=== PATIENT | male | born 1955 | race Caucasian/White ===

== ENCOUNTER 2025-05-02 14:06 | Inpatient (IN) | payer MEDICARE, SELFPAY ==
[2025-05-02] VITALS (11 sets, daily range): BP systolic 93–149; BP diastolic 62–87; PULSE 62–77; RESP 16–18; TEMP 36.2–36.8; O2SAT 93–98; BMI 28.7; BMI 29.6
--- NOTE | 2025-05-02 14:49 | CTR_ITS ---
PROCEDURE INFORMATION: Exam: CT Pelvis With Contrast Exam date and time: 05/02/2025 4:01 PM Age: 69 years old Clinical indication: Other: Perirectal pain, ? abcess at 6 oclock position TECHNIQUE: Imaging protocol: Computed tomography of the pelvis with contrast. Radiation optimization: All CT scans at this facility use at least one of these dose optimization techniques: automated exposure control; mA and/or kV adjustment per patient size (includes targeted exams where dose is matched to clinical indication); or iterative reconstruction. Contrast material: OMNI 350; Contrast volume: 100 ml; Contrast route: INTRAVENOUS (IV); COMPARISON: No relevant prior studies available. RADIATION DOSE METRICS: Total DLP (mGy-cm): 401.31 FINDINGS: Intestine: Visualized small and large intestine are unremarkable. Appendix: No evidence of appendicitis. Intraperitoneal space: See Soft tissues finding. Lymph nodes: Unremarkable. No enlarged lymph nodes. Reproductive: The prostate gland is abnormally enlarged. Urinary bladder: Normal. No mass. Bones/joints: Unremarkable. No acute fracture. No dislocation. Soft tissues: There is a perianal abscess wrapping around the posterior aspect of the anus. The abscess crosses the midline and measures 4 cm in length, 3.7 cm in AP diameter and 3.3 cm in width. There is surrounding inflammation. The abscess does not enter the pelvic cavity. CT/CT pelvis w con* [id number] IMPRESSION: 1. Perianal abscess 2. Prostate enlargement
[2025-05-02 15:07] LABS: Basophils % 0.2 %; Eosinophils # 0.1 10^3/uL (0.0-0.8); Eosinophils % 0.9 %; Hematocrit 44.6 % (37-53); Lymphocytes % 14.4 %; Mean Corpuscular HGB Conc 32.5 g/dL (30-55); Mean Corpuscular Hemoglobin 28.7 pg (27-33); Mean Corpuscular Volume 88.3 fl (82-101); Mean Platelet Volume 10.5 fL (7.4-10.4); Monocytes # 1.6 10^3/uL (0.2-0.9); Monocytes % 11.7 %; Neutrophils # 10.08 10^3/uL (1.8-7.7); Neutrophils % 72.4 %; Nucleated Red Blood Cells % 0 %; Platelet Count 191 10^3/cmm (157-399); Red Blood Count 5.05 10^6/uL (3.85-5.65); Red Cell Distribution Width 13.3 % (12.1-15.1); White Blood Count 13.93 10^3/uL (3.29-11.43)
[2025-05-02 15:25] LABS: Alanine Aminotransferase 35 U/L (0-41); Albumin Level 3.7 g/dL (3.5-5.2); Alkaline Phosphatase 48 U/L (40-130); Anion Gap 15.1 (5-19); Aspartate Amino Transferase 31 U/L (0-40); Blood Urea Nitrogen 13 mg/dL (8-23); Calcium 9.2 mg/dL (8.5-10.5); Carbon Dioxide 24 mmol/L (22-29); Chloride 102 mmol/L (98-107); Globulin 3.5 g/dL (1.3-4.6); Glomerular Filtration Rate 96.1 mL/min (90-130); Glucose 104 mg/dL (65-115); Osmolality Calculated 284 mOsm/kg (285-295); Potassium 4.1 mmol/L (3.5-5.1); Sodium 137 mmol/L (136-145); Total Bilirubin 0.8 mg/dL (0.15-1.2); Total Protein 7.2 g/dL (6.6-8.7)
[2025-05-02] MEDS: iohexol 350 mg/mL 500 mL Btl (per mL) IV (16:02)
[2025-05-02] MEDS: piperacillin-tazobactam 3.375 GM in sodium chloride 0.9% (plus) 50 ML IV (17:03)
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
[2025-05-02] MEDS: ondansetron 2 mg/ML SDV 2 mL 4 MG IVP (19:38)
[2025-05-02] MEDS: sodium chloride 0.9% 1,000 ML 100 ML IV (19:38)
--- NOTE | 2025-05-02 20:20 | PM.HP ---
Providers/Chief Complaint Admitting Physician: Danielle Chandra DO Chief Complaint: knot on anal area History of Present Illness Sandoval Lopez is a 69 year old male who presented to the ED with anal/rectal pain and swelling. He has had the pain for about a week, but the pain significantly worsened yesterday. The patient denied measured fevers, but stated that he had subjective fevers and felt hot at night. The patient denied nausea, vomiting, abdominal pain, hematochezia, or melena. He is not diabetic and is generally healthy. He has not had a perianal or perirectal abscess in the past. Review of Systems General: Reports: 10 or more systems reviewed and unremarkable except in HPI and below Medications/Allergies Allergies Allergy/AdvReac Type Severity Reaction Status Date / Time No Known Allergies Allergy Verified 05/02/25 14:26 Vitals/I&O/Wt Last Vital Signs Temp 98.3 F 05/02/25 14:21 Pulse 68 05/02/25 19:42 Resp 16 05/02/25 19:42 BP 135/85 05/02/25 18:05 Pulse Ox 95 05/02/25 19:42 O2 Del Method Room Air 05/02/25 15:27 05/02/25 05/02/25 05/02/25 06:59 14:59 22:59 Intake Total 0 / 0 Balance 0 / 0 Weight last 48 hrs Weight 200 lb Physical Exam Const: COMMON NORMALS: no acute distress, average body habitus and patient oriented x3 HENMT: COMMON NORMALS: normocephalic and atraumatic Chest: COMMONS NORMALS: normal inspection of the chest and normal palpation of entire chest wall Resp: COMMON NORMALS: normal respiratory effort and No use of accessory muscles GI: COMMON NORMALS: Soft to palpation and non-tender OTHER: Upon digital rectal exam there was a palpable firmness approx. 3 cm superior to the anal verge at the 6 o'clock position. On perianal exam, there was an area of palpable firmness at the 6 o'clock position approximately 2 cm from the anal verge, there was not apparent fluctuance or overlying erythema at the location. Data 05/02/25 15:00 05/02/25 15:00 Micro: Microbiology 05/02/25 15:02 Blood Culture - Preliminary Blood SPECIMEN COLLECTED 05/02/25 15:00 Blood Culture - Preliminary Blood SPECIMEN COLLECTED Other CT: Radiologist's impression: CT Pelvis FINDINGS: Intestine: Visualized small and large intestine are unremarkable. Appendix: No evidence of appendicitis. Intraperitoneal space: See Soft tissues finding. Lymph nodes: Unremarkable. No enlarged lymph nodes. Reproductive: The prostate gland is abnormally enlarged. Urinary bladder: Normal. No mass. Bones/joints: Unremarkable. No acute fracture. No dislocation. Soft tissues: There is a perianal abscess wrapping around the posterior aspect of the anus. The abscess crosses the midline and measures 4 cm in length, 3.7 cm in AP diameter and 3.3 cm in width. There is surrounding inflammation. The abscess does not enter the pelvic cavity. IMPRESSION: 1. Perianal abscess 2. Prostate enlargement A&P Assessment and plan (1) Perirectal abscess: This patient has 4.0 x 3.7 x 3.0 cm perirectal verus perianal abscess that is more apparent on digital rectal exam and on CT (see physical exam findings). After reviewing the CT, and I had concern for a high abscess, either ischiorectal, inersphincteric, and less likely although possible a supralevato abscess. The radiologist confirmed that the abscess was quite high and either involved the sphincter muscles or was at the very least adjacent to the sphincter muscles. I requested that ED physician send images to colorectal surgeon for review. Colorectal was confident that colorectal surgery intervention was unnecessary. Plan for rectal exam under anesthesia with excisional debridement and drainage of perirectal/perianal absces, with possible fistulotomy, possible draining seton placement, and other procedures as indicated. The procedure and what it would entail were discussed with the patient and his family member in detail. Risks included, but were not limited to, infection, bleeding, abscess recurrence, damage to the internal or external anal sphincters, fecal incontinence, need for further colorectal surgery, fistula formation, drainage into the rectum/perforation, damage to surrounding tissues, poor wound healing, delayed healing, need for further abscess drainage, need for prolonged wound care, and heart or lung complications. All questions were answered, and the patient wished to proceed with surgery. (2) Leukocytosis (leucocytosis): PDMP PDMP Reviewed: Not Reviewed Attestations Medical Necessity Statement*: Observation - for post op care. Transition to inpatient if clinically indicated. Coding Level of Care Code Acute Code for [facility] Fwd Diagnoses Perirectal abscess K61.1 Leukocytosis (leucocytosis) D72.822
--- NOTE | 2025-05-02 20:32 | ANES.PREANE2 ---
Pre-Anesthetic Assessment Height/Weight: Height 1.78 m Weight 90.718 kg Temp Pulse Resp BP Pulse Ox O2 Del Method 98.3 F 68 16 135/85 95 Room Air 05/02/25 14:21 05/02/25 19:42 05/02/25 19:42 05/02/25 18:05 05/02/25 19:42 05/02/25 15:27 Operation Date: 05/02/25 21:10 Proposed Procedures p Perirectal Abscess(Not Applicable) - Danielle Chandra MD Familial anesthetic complications: None Was Beta Jenni taken within 24 hours: N/A Was Clonidine taken within 24 hours: N/A Last intake: Intake Last Liquid Date 05/02/25 Last Liquid Time 11:30 Last Solid Date 05/02/25 Last Solid Time 09:00 Social No alcohol and No tobacco Exam alert, oriented x 3, clear to auscultation bilaterally and regular rate & rhythm Airway Mallampati: Class II Dentition: chipped Anesthetic Plan ASA status: 1E Anesthesia: General Risk of > 500 ml blood loss (7ml/kg in children): No Medications/Allergies Allergies Allergy/AdvReac Type Severity Reaction Status Date / Time No Known Allergies Allergy Verified 05/02/25 14:26 Current Medications Generic Name Dose Route Start Last Admin Trade Name Freq PRN Reason Stop Dose Admin Sodium Chloride 1,000 mls @ 100 mls/hr 05/02/25 19:00 05/02/25 19:38 Sodium Chloride 0.9% IV 100 mls/hr .Q10H TIERA Administration Ondansetron HCl 4 mg 05/02/25 18:59 05/02/25 19:38 Ondansetron 2 Mg/Ml Sdv 2 Ml IVP 4 mg Q6H PRN Administration NAUSEA AND VOMITING Data Anesthesia 05/02/25 15:00 05/02/25 15:00 Short CBC 05/02/25 Range/Units 15:00 WBC 13.93 H (3.29-11.43) 10^3/uL Hgb 14.50 (11.27-16.99) g/dL Hct 44.6 (37-53) % MCV 88.3 (82-101) fl Plt Count 191 (157-399) 10^3/cmm Neut % (Auto) 72.4 % Neut # (Auto) 10.08 H (1.8-7.7) 10^3/uL BMP 05/02/25 15:00 Sodium 137 Potassium 4.1 Chloride 102 Carbon Dioxide 24 BUN 13 Creatinine 0.8 Glucose 104 Calcium 9.2 Liver Function 05/02/25 Range/Units 15:00 Total Bilirubin 0.8 (0.15-1.2) mg/dL AST 31 (0-40) U/L ALT 35 (0-41) U/L Alkaline Phosphatase 48 (40-130) U/L Albumin 3.7 (3.5-5.2) g/dL Microbiology 05/02/25 15:02 Blood Culture - Preliminary Blood SPECIMEN COLLECTED 05/02/25 15:00 Blood Culture - Preliminary Blood SPECIMEN COLLECTED
[2025-05-02] MEDS: lidocaine-epi 1% 20 mL INJ 10 ML INJECTION (22:10)
[2025-05-02] MEDS: BUPivacaine 0.25% INJ 10 mL INJECTION (22:10)
--- NOTE | 2025-05-02 23:12 | P.OP_ITS ---
Operative Report Date of procedure: May 02, 2025 Pre-op diagnosis: Perianal/perirectal abscess Post-op diagnosis: Deep postanal abscess Procedure done: 1. Rectal exam under anesthesia 2. Incision and drainage of postanal space abscess 3. Excisional debridement post anal abscess, including skin, subcutaneous tissue (area of debridement equals 7.0 cm?) Specimens removed/disposition: 1. Deep post anal sapce abscess fluid sent for Gram stain, aerobic, and anaerobic cultures and sensitivity 2. Post anal abscess excisional debridement tissue for histopathology Surgeon: Danielle Chandra MD Estimated blood loss: 2 mL Complications: None apparent Findings: There was a large deep postanal space abscess, with the most caudal aspect of the abscess was located 3 cm from the level of the perianal skin (determined by aspiration with the 18 gauge needle and syringe). After drainage of the abscess and excisional debridement, the wound opening measured 2 cm in length by 2 cm in width. The wound opening was located at the 5 o'clock position and was 3.5 cm from the anal verge. The depth of the wound was 3.5 cm. There was a 3.0 cm in length anterolateral tunneling and a 3.5 cm in length posteromedial tunneling. Procedure: Prior to the procedure, the procedure and what would entail were discussed with the patient in detail. Risks included but were not limited to, infection, bleeding, abscess recurrence, damage to the internal or external anal sphincters, fecal incontinence, need for further colorectal surgery, fistula formation, drainage into the rectum/perforation, damage to surrounding tissues, poor wound healing, delayed healing, need for further abscess drainage, need for prolonged wound care, and heart or lung complications. All questions were answered, and the patient wished to proceed with surgery. The patient was brought to the operative suite and transferred to the operative table. General anesthesia and endotracheal intubation were accomplished by the anesthesiologist. The patient was transition to a dorsal lithotomy position. The patient's perianum, bilateral thighs, groin, and bilateral buttocks were prepped and draped in the usual sterile fashion. Timeout was performed verifying the correct surgeon, surgery to be performed, preoperative antibiot ics, and patient medication allergies. After a proper timeout was performed, local anesthetic was infiltrated within the skin and subcutaneous tissues at the operative site. Digital rectal exam was performed. Utilizing an 18-gauge needle and syringe, the deep post anal space abscess was located (there was not overlying fluctuance or erythema to guide choice of incision site) and some of the abscess fluid was aspirated. A portion of the abscess fluid was sent for Gram stain, aerobic and anaerobic cultures and sensitivities. A cruciform incision was made at this site and the remaining abscess fluid was removed. The abscess cavity was carefully explored to ensure that no additional abscess fluid pockets were present. The corners of the cruciform incision were trimmed with electrocautery and the abscess tissue was passed off the field and sent for histopathology. Excellent hemostasis was achieved with Bovie electrocautery. The wound was irrigated with copious sterile saline. The wound was packed with 1/2 inch iodoform gauze. A sterile dressing of gauze and ABD was placed over top. The patient tolerated the procedure well and was transferred to the post anesthesia care unit in stable and satisfactory condition.
[2025-05-03] MEDS: piperacillin-tazobactam 3.375 GM in sodium chloride 0.9% (plus) 50 ML IV ×4 (00:47→22:12)
[2025-05-03 04:00] VITALS: BP 113/71; PULSE 56; RESP 18; TEMP 36.6; O2SAT 96
[2025-05-03] MEDS: enoxaparin 40 mg/0.4 mL Syringe SUBCUT (05:13)
[2025-05-03 05:49] LABS: Basophils % 0.2 %; Hematocrit 44.6 % (37-53); Lymphocytes # 0.8 10^3/uL (0.8-4.8); Lymphocytes % 6.5 %; Mean Corpuscular HGB Conc 32.3 g/dL (30-55); Mean Corpuscular Hemoglobin 28.8 pg (27-33); Mean Corpuscular Volume 89.2 fl (82-101); Mean Platelet Volume 10.7 fL (7.4-10.4); Monocytes # 0.4 10^3/uL (0.2-0.9); Monocytes % 3.1 %; Neutrophils % 89.7 %; Nucleated Red Blood Cells % 0 %; Platelet Count 175 10^3/cmm (157-399); Red Cell Distribution Width 13.2 % (12.1-15.1); White Blood Count 11.92 10^3/uL (3.29-11.43)
[2025-05-03 08:30] VITALS: BP 116/69; PULSE 46; RESP 16; TEMP 36.5; O2SAT 98
[2025-05-03] MEDS: docusate sodium 100 mg Capsule PO ×2 (09:00→17:39)
--- NOTE | 2025-05-03 09:07 | P.PN_ITS ---
Subjective 2 Subjective: The patient was seen and evaluated at bedside this morning. His rectal/anal pain has completely resolved. He is tolerating a regular diet, without nausea or vomiting. He has voided 5 times since surgery last night. Vitals/I&O/Wt Last Vital Signs Temp 97.7 F 05/03/25 08:30 Pulse 46 L 05/03/25 08:30 Resp 16 05/03/25 08:30 BP 116/69 05/03/25 08:30 Pulse Ox 98 05/03/25 08:30 O2 Del Method Room Air 05/03/25 08:30 O2 Flow Rate 10 05/02/25 22:45 05/02/25 05/03/25 05/03/25 22:59 06:59 14:59 Intake Total 0 / 0 2099 / 2099 Output Total 800 / 810 Balance - 1300 / 1290 Weight last 48 hrs Weight 216 lb 5 oz Weight 206 lb 8 oz Weight 200 lb Physical Exam 2 Const: COMMON NORMALS: no acute distress, average body habitus and patient oriented x3 HENMT: COMMON NORMALS: normocephalic and atraumatic HEAD & SCALP: n ormocephalic and atraumatic Chest: COMMONS NORMALS: normal inspection of the chest Resp: COMMON NORMALS: normal respiratory effort and No use of accessory muscles GI: COMMON NORMALS: Soft to palpation and non-tender PALPATION: Yes Soft to palpation OTHER: Digital rectal and perianal exam performed during wound care today -see below in plan. Neuro: COMMON NORMALS: patient oriented x3 and moves all extremities Psych: COMMON NORMALS: Normal thought process present, cooperative, normal affect and speech normal SPEECH: Yes normal speech THOUGHT PROCESS: Normal thought process present Data 05/03/25 05:25 05/02/25 15:00 Micro: Microbiology 05/02/25 21:47 Gram Stain - Final Anus 05/02/25 15:02 Blood Culture - Preliminary Blood SPECIMEN COLLECTED 05/02/25 15:00 Blood Culture - Preliminary Blood SPECIMEN COLLECTED A&P Assessment and plan (1) Anal abscess: Deep postanal abscess: This patient had a post anal abscess: The wound opening measures 2 cm in length by 2 cm in width. The wound opening is located at the 5 o'clock position and is 3.5 cm from the anal verge. The depth of the wound is ~ 3.5 cm. There is a 3.0 cm in length anterolateral tunneling and a 3.5 cm in length posteromedial tunneling. -- Digital rectal exam demonstrates resolution of the firmness located posteriorly in the anal/rectal canal. -- The wound base edges were pink and well-perfused, without sign of necrotic or devitalized tissue, and without purulent or malodorous drainage. The wound was nontender and the adjacent skin was nonerythematous. -- Wound care performed at bedside this morning: The packing was removed. The wound was irrigated with copious sterile saline. The wound was packed with plain 1 half-inch strip gauze. An outer dressing of sterile gauze was placed. Patient's was present for and assisted with the wound care at bedside today. If the patient has a bowel movement, wound care will need to be repeated, otherwise just daily wound care/packing will be fine. Preliminary Gram stain demonstrates gram-positive cocci and gram-negative rods: Continue IV Zosyn, add vancomycin. Hopefully sensitivities will revolve result tomorrow and I can discharge the patient on oral antibiotics. (2) Perirectal abscess: (3) Leukocytosis (leucocytosis): PDMP PDMP Reviewed: Not Reviewed Attestations 2 Medical Necessity Statement*: IV antibiotics, serial deep postanal abscess exams, monitoring of vital signs, monitoring of labs, and following abscess fluid cultures and sensitivities. Coding Level of Care Code Acute Code for [facility] Diagnoses Anal abscess K61.0 Perirectal abscess K61.1 Leukocytosis (leucocytosis) D72.829
--- NOTE | 2025-05-03 09:45 | PHA.VACGOAL ---
Vancomycin Goal - Goal Vancomycin Goal:: 15-20 mg/L Vancomycin Indication:: SSTI (PERIANAL ABSCESS) - Therapy Day of therpy:: Day []of [] . Actual body weight (kg): 216 lb 5 oz - Data Labs: WBC 11.92 10^3/uL (3.29-11.43) H 05/03/25 05:25 RBC 5.00 10^6/uL (3.85-5.65) 05/03/25 05:25 Hgb 14.40 g/dL (11.27-16.99) 05/03/25 05:25 Hct 44.6 % (37-53) 05/03/25 05:25 MCV 89.2 fl (82-101) 05/03/25 05: MCH 28.8 pg (27-33) 05/03/25 05: MCHC 32.3 g/dL (30-55) 05/03/25 05:25 RDW 13.2 % (12.1-15.1) 05/03/25 05:25 Sodium 137 mmol/L (136-145) 05/02/25 15:00 Potassium 4.1 mmol/L (3.5-5.1) 05/02/25 15:00 Chloride 102 mmol/L (98-107) 05/02/25 15:00 Carbon Dioxide 24 mmol/L (22-29) 05/02/25 15:00 Anion Gap 15.1 (5-19) 05/02/25 15:00 BUN 13 mg/dL (8-23) 05/02/25 15:00 Creatinine 0.8 mg/dL (0.7-1.2) 05/02/25 15:00 GFR Calculation 96.1 mL/min (90-130) 05/02/25 15:00
[2025-05-03] MEDS: vancomycin 1,500 MG/300 ML PIGGYBACK 200 MG IV (11:23)
[2025-05-03 12:13] VITALS: BP 119/67; PULSE 47; RESP 17; TEMP 36.4; O2SAT 98
[2025-05-03 15:28] VITALS: BP 119/74; PULSE 52; RESP 16; TEMP 36.6; O2SAT 98
[2025-05-03] MEDS: vancomycin 1,250 MG/250 ML PIGGYBACK 166.67 MG IV (17:39)
[2025-05-03 20:00] VITALS: BP 105/66; PULSE 56; RESP 17; TEMP 36.8; O2SAT 95
[2025-05-03] MEDS: diphenhydrAMINE 50 mg Capsule PO (22:34)
[2025-05-04] VITALS (7 sets, daily range): BP systolic 99–130; BP diastolic 57–79; PULSE 56–63; RESP 16–19; TEMP 36.5–37.2; O2SAT 93–96
[2025-05-04] MEDS: piperacillin-tazobactam 3.375 GM in sodium chloride 0.9% (plus) 50 ML IV ×3 (06:24→21:37)
[2025-05-04] MEDS: enoxaparin 40 mg/0.4 mL Syringe SUBCUT (06:24)
[2025-05-04 10:37] LABS: Basophils % 0.2 %; Eosinophils # 0.1 10^3/uL (0.0-0.8); Eosinophils % 0.5 %; Lymphocytes # 2.4 10^3/uL (0.8-4.8); Lymphocytes % 16.1 %; Mean Corpuscular Hemoglobin 28.8 pg (27-33); Mean Platelet Volume 10.6 fL (7.4-10.4); Monocytes # 1.3 10^3/uL (0.2-0.9); Neutrophils # 10.88 10^3/uL (1.8-7.7); Neutrophils % 73.8 %; Nucleated Red Blood Cells % 0 %; Platelet Count 216 10^3/cmm (157-399); Red Cell Distribution Width 13.1 % (12.1-15.1); White Blood Count 14.74 10^3/uL (3.29-11.43)
[2025-05-04] MEDS: HYDROcodone-acetaminophen 5-325 mg Tablet 1 TAB PO ×2 (11:16→21:35)
[2025-05-04] MEDS: docusate sodium 100 mg Capsule PO ×2 (11:16→18:02)
--- NOTE | 2025-05-04 14:45 | P.PN_ITS ---
Subjective 2 Subjective: The patient was seen and evaluated at bedside this morning. His rectal/anal pain has significantly resolved. He still has some anal/rectal discomfort. He is tolerating a regular diet, without nausea or vomiting. Last night his skin became red on face, neck, and chest with Vancomycin infusion - stopped vancomycin and gave Benadryl. Vitals/I&O/Wt Last Vital Signs Temp 97.7 F 05/04/25 11:29 Pulse 56 L 05/04/25 11:29 Resp 17 05/04/25 11:29 BP 125/71 05/04/25 11:29 Pulse Ox 95 05/04/25 11:29 O2 Del Method Room Air 05/04/25 11:29 O2 Flow Rate 10 05/02/25 22:45 05/03/25 05/04/25 05/04/25 22:59 06:59 14:59 Intake Total 250 / 650 50 / 700 650 / 650 Balance 250 / 650 50 / 700 650 / 650 Weight last 48 hrs Weight 209 lb 14.4 oz Weight 216 lb 5 oz Weight 206 lb 8 oz Physical Exam 2 Const: COMMON NORMALS: no acute distress and patient oriented x3 HENMT: COMMON NORMALS: normocephalic and atraumatic HEAD & SCALP: n ormocephalic and atraumatic Chest: COMMONS NORMALS: normal inspection of the chest Resp: COMMON NORMALS: normal respiratory effort and No use of accessory muscles GI: OTHER: Digital rectal and perianal exam performed during wound care today. -- Digital rectal exam demonstrates reso lution of the firmness located posteriorly in the anal/rectal canal. -- The wound base edges were pink and we ll-perfused, without any sign of necrotic or devitalized tissues, and without purulent or malodorous drainage. The wound was nontender and the adjacent skin was nonerythematous and non- edematous. Neuro: COMMON NORMALS: patient oriented x3 Data 05/04/25 10:26 05/02/25 15:00 Micro: Microbiology 05/02/25 21:47 Anaerobic Culture - Preliminary Anus 05/02/25 21:47 Gram Stain - Final Anus Abscess Culture - Preliminary Gram Negative Rods 05/02/25 15:02 Blood Culture - Preliminary Blood NEGATIVE TO DATE 05/02/25 15:00 Blood Culture - Preliminary Blood NEGATIVE TO DATE A&P Assessment and plan (1) Anal abscess: Deep postanal abscess: Operative wound measurements: opening measures 2 cm in length by 2 cm in width. The wound opening is located at the 5 o'clock position and is 3.5 cm from the anal verge. The depth of the wound is ~ 3.5 cm. There is a 3.0 cm in length anterolateral tunneling and a 3.5 cm in length posteromedial tunneling. -- Wound care performed at bedside this morning: Wound size has contracted since yesterday's dressing change. The packing was removed. The wound was irrigated with copious sterile saline. The wound was packed with plain 1 half-inch strip gauze. An outer dressing of sterile gauze was placed. Gram stain demonstrates gram-positive cocci in pairs and gram-negative rods: Abscess cultures: Preliminary heavy gram negative rods. Aerobic abscess cultures: No anaerobes isolated on day 2. Blood cultures: Negative to date. Of note, I suspect that the gram-negative jose miguel is E. coli. Continue IV Zosyn, Vanocmycin stopped/held due to possible reaction. Consider adding Flagyl for further anaerobe coverage. Consult hospitalist for antibiotic recommendations/medical management. I had been planning to discharge him today. However, with the persistent leukocytosis despite source control and IV antibiotics, combined with not having solid final culture results and sensitivities and the patient not having a primary care provider to follow-up with, I will keep him at least 1 more night. (2) Perirectal abscess: (3) Leukocytosis (leucocytosis): PDMP PDMP Reviewed: Not Reviewed Attestations 2 Medical Necessity Statement*: IV antibiotics, serial deep postanal abscess exams, monitoring of vital signs, monitoring of labs, and following abscess fluid cultures and sensitivities. Coding Level of Care Code Acute Code for [facility] Diagnoses Anal abscess K61.0 Perirectal abscess K61.1 Leukocytosis (leucocytosis) D72.829
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
[2025-05-04] MEDS: ampicillin 2,000 MG in sodium chloride 0.9% (plus) 50 ML 100 MG IV (18:02)
[2025-05-04] MEDS: ampicillin 2,000 MG in sodium chloride 0.9% (plus) 50 ML 50 MG IV (21:38)
--- NOTE | 2025-05-05 00:10 | ANE.PACU2 ---
Inpatient post-anesthesia follow up: Airway intact: Yes Vital signs: Temperature 98.3 F Pulse Rate 57 Respiratory Rate 18 Blood Pressure 129/79 Pulse Oximetry 97 Oxygen Delivery Me thod Room Air Oxygen Flow Rate 10 Fraction of Inspir ed Oxygen Hydration adequate: Yes Nausea and vomiting: No Pain level: 1 Mental status: Baseline
[2025-05-05 04:00] VITALS: BP 110/66; PULSE 81; RESP 18; TEMP 36.8; O2SAT 97
[2025-05-05 04:28] LABS: Basophils % 0.3 %; Eosinophils # 0.1 10^3/uL (0.0-0.8); Eosinophils % 0.9 %; Hematocrit 42.3 % (37-53); Lymphocytes # 2.7 10^3/uL (0.8-4.8); Lymphocytes % 22.3 %; Mean Corpuscular HGB Conc 32.9 g/dL (30-55); Mean Corpuscular Hemoglobin 29.1 pg (27-33); Mean Corpuscular Volume 88.5 fl (82-101); Mean Platelet Volume 10.5 fL (7.4-10.4); Monocytes # 1.3 10^3/uL (0.2-0.9); Monocytes % 11.1 %; Neutrophils # 7.87 10^3/uL (1.8-7.7); Neutrophils % 64.9 %; Nucleated Red Blood Cells % 0 %; Platelet Count 219 10^3/cmm (157-399); Red Blood Count 4.78 10^6/uL (3.85-5.65); Red Cell Distribution Width 13.1 % (12.1-15.1); White Blood Count 12.12 10^3/uL (3.29-11.43)
[2025-05-05] MEDS: piperacillin-tazobactam 3.375 GM in sodium chloride 0.9% (plus) 50 ML IV (04:57)
[2025-05-05] MEDS: enoxaparin 40 mg/0.4 mL Syringe SUBCUT (04:58)
[2025-05-05] MEDS: ampicillin 2,000 MG in sodium chloride 0.9% (plus) 50 ML 50 MG IV (04:58)
[2025-05-05] MEDS: docusate sodium 100 mg Capsule PO (07:38)
[2025-05-05 09:10] VITALS: BP 129/79; PULSE 57; RESP 18; TEMP 36.8; O2SAT 97
--- NOTE | 2025-05-05 09:13 | PC.CHAP ---
Pastoral Care Encounter/Spiritual Assessment Type of Contact [] Declined clin nurse visit [] Patient/Family/Request visit [] Outpatient visit [] Follow-up visit [] Physician referral [] Code/Alert [x] Routine visit [] Staff referral [] Actively dying [] Patient sleeping [] Family support [] [] Out of room [] Palliative care [] [] Receiving care in room [] Pre-surgical visit [] Trauma [] Long length of stay [] ICU visit [] Other: Relational/Emotional Strength [] Patient feels connected with others/family/visitors/staff [] Distress [] Loneliness/isolation [] Abandonment Spirituality of Patient [x] Person of Muriel [] Attends Mandaen of their Muriel [x] Believes in Prayer [] Reads Bible or Temple materials [] There are Spiritual issues to be addressed Training Director Interventions [x] Prayer [x] Active listening [] Non-anxious presence [] Spiritual/emotional support [] Crisis/trauma care [] Spiritual counseling [] Bereavement support [] Provided bereavement packet [x] Provided Bible/devotional materials [] Provided toy/stuffed animal, coloring book to patient or family member [] Provided Communion [] Anointing/[place] [] Salvation [x Completed spiritual assessment [] Other: Impact on Illness or Injury [] Angry [] Fearful [] Anxious [] Often cries [] Exhaustion [] Unable to work [] Unable to attend moravian [] Unable to walk/stand [] Unable to read [] Unable to drive [] Unable to eat/drink [] Unable to sleep [] Unable to be with family [] Patient intubated [] Other: Summary Time spent with patient 5 min
--- NOTE | 2025-05-05 10:04 | P.DS_ITS ---
Discharge Providers Date of Admission: 05/03/25 16:53 Date of Discharge: May 05, 2025 Attending Provider at Admission: Danielle Chandra MD Attending Provider at Discharge: Danielle Chandra MD Diagnoses at Discharge Discharge Diagnosis (1) Anal abscess: Details from hospital stay: The patient did very well while in hospital. On May 02, 2025, the patient underwent rectal exam under anesthesia with incision and drainage of large postanal abscess (located quite high cranially). Over the hospital course, the patient underwent serial rectal exams and wound care dressing changes. He was started on broad-spectrum antibiotics, Zosyn, initially, and hospital day #2 vancomycin was added, however the patient had flushing of the chest neck and face after administration, as soon as I was notified by the nurse of this I had them discontinue vancomycin and give Benadryl. On hospital day #3, due to persistent leukocytosis despite source control, vancomycin reaction, and lack of culture results/sensitivities, hospitalist was consulted. I appreciate their assistance. He was continued on Zosyn throughout the hospital stay and ampicillin was added on hospital day #3. Culture results and sensitivities were reviewed on a daily basis. On hospital day #4, I discussed the antibiotic choice/regimen with the hospitalist. Throughout his hospital stay, the wound bed remained pink and well-perfused, without malodorous drainage or purulent drainage. There was no evidence of necrotic or devitalized tissues. The patient's pain in the anal/rectal region improved every day throughout the hospital stay. Throughout the hospital stay, the patient was tolerating her regular diet without nausea or vomiting, and was having bowel movements. He ambulated often. Status: Acute Permanent problem details: Drained by Dr Chandra - 04/2025 Reason for Visit Reason for Visit: knot on anal area Physical Exam Const: COMMON NORMALS: no acute distress and patient oriented x3 Resp: COMMON NORMALS: normal respiratory effort and No use of accessory muscles GI: OTHER: Perianal wound exam: -- The wound base edges were pink and we ll-perfused, without any sign of necrotic or devitalized tissues, and without purulent or malodorous drainage. The wound was nontender and the adjacent skin was nonerythematous and non- edematous. Neuro: COMMON NORMALS: patient oriented x3 Psych: COMMON NORMALS: mental status grossly normal, cooperative and normal affect Discharge Data Studies Completed and Pending Completed Studies During Hospitalization Category Date Time Status CT pelvis w con* [id number] Stat Cat Scan 05/02/25 14:49 Completed Pending at discharge Category Date Time Status Abscess Culture and Gram Stain Routine Lab 05/02/25 21:47 Results Anaerobic Culture Routine Lab 05/02/25 21:47 Results Blood Culture Stat Lab 05/02/25 15:02 Results Pathology: Surgical [PTH] Routine Pth 05/05/25 07:20 Received Radiology Impressions Pelvis CT 05/02/25 14:49 IMPRESSION: 1. Perianal abscess 2. Prostate enlargement ADDENDUM: 05/02/25 [id number] The findings were confirmed with Dr. Chandra. Laboratory Results WBC 12.12 10^3/uL (3.29-11.43) H 05/05/25 03:39 RBC 4.78 10^6/uL (3.85-5.65) 05/05/25 03:39 Hgb 13.90 g/dL (11.27-16.99) 05/05/25 03:39 Hct 42.3 % (37-53) 05/05/25 03:39 MCV 88.5 fl (82-101) 05/05/25 03:39 MCH 29.1 pg (27-33) 05/05/25 03:39 MCHC 32.9 g/dL (30-55) 05/05/25 03:39 RDW 13.1 % (12.1-15.1) 05/05/25 03:39 Plt Count 219 10^3/cmm (157-399) 05/05/25 03:39 MPV 10.5 fL (7.4-10.4) H 05/05/25 03:39 Neut % (Auto) 64.9 % 05/05/25 03:39 Lymph % (Auto) 22.3 % 05/05/25 03:39 Anderson % (Auto) 11.1 % 05/05/25 03:39 Eos % (Auto) 0.9 % 05/05/25 03:39 Baso % (Auto) 0.3 % 05/05/25 03:39 Neut # (Auto) 7.87 10^3/uL (1.8-7.7) H 05/05/25 03:39 Lymph # (Auto) 2.7 10^3/uL (0.8-4.8) 05/05/25 03:39 Anderson # (Auto) 1.3 10^3/uL (0.2-0.9) H 05/05/25 03:39 Eos # (Auto) 0.1 10^3/uL (0.0-0.8) 05/05/25 03:39 Baso # (Auto) 0.0 10^3/uL (0.0-0.1) 05/05/25 03:39 Nucleated RBC % (auto) 0 % 05/05/25 03:39 Nucleated RBCs # 0.0 /100WBC 05/05/25 03:39 Sodium 137 mmol/L (136-145) 05/02/25 15:00 Potassium 4.1 mmol/L (3.5-5.1) 05/02/25 15:00 Chloride 102 mmol/L (98-107) 05/02/25 15:00 Carbon Dioxide 24 mmol/L (22-29) 05/02/25 15:00 Anion Gap 15.1 (5-19) 05/02/25 15:00 BUN 13 mg/dL (8-23) 05/02/25 15:00 Creatinine 0.8 mg/dL (0.7-1.2) 05/02/25 15:00 GFR Calculation 96.1 mL/min (90-130) 05/02/25 15:00 Glucose 104 mg/dL (65-115) 05/02/25 15:00 Calculated Osmolality 284 mOsm/kg (285-295) L 05/02/25 15:00 Lactic Acid 1.0 mmol/L (0.5-2.2) 05/02/25 15:00 Calcium 9.2 mg/dL (8.5-10.5) 05/02/25 15:00 Total Bilirubin 0.8 mg/dL (0.15-1.2) 05/02/25 15:00 AST 31 U/L (0-40) 05/02/25 15:00 ALT 35 U/L (0-41) 05/02/25 15:00 Alkaline Phosphatase 48 U/L (40-130) 05/02/25 15:00 Total Protein 7.2 g/dL (6.6-8.7) 05/02/25 15:00 Albumin 3.7 g/dL (3.5-5.2) 05/02/25 15:00 Globulin 3.5 g/dL (1.3-4.6) 05/02/25 15:00 Vitals Last Vital Signs Temp 98.3 F 05/05/25 09:10 Pulse 57 L 05/05/25 09:10 Resp 18 05/05/25 09:10 BP 129/79 05/05/25 09:10 Pulse Ox 97 05/05/25 09:10 O2 Del Method Room Air 05/05/25 04:00 O2 Flow Rate 10 05/02/25 22:45 Discharge Plan Discharge Patient Disposition: Home Condition: Stable Prescriptions: New amoxicillin-pot clavulanate 875-125 mg tablet 1 tab PO BID 10 Days Qty: 20 0RF hydrocodone-acetaminophen 5-325 mg tablet 1 tab PO Q6H PRN (Reason: pain, severe) 6 Days Qty: 24 0RF Discharge Orders: Discharge Order (Routine); Ordered 05/05/25 Ordered By: Danielle Chandra Referrals: Ernesto Armstrong MD [Physician, General Surgery] - 05/15/25 Referral Note: Follow up post-op post anal abscess in approx. 10 days Beverley Owen NP [Referring, Nurse Practitioner] - 05/12/25 10:00 am Discharge Diet: Advance as tolerated Discharge Activity: Resume usual activity Patient Instructions: Hydrocodone/Acetaminophen (By mouth), Amoxicillin/Clavulanate Potassium (By mouth), Rectal Abscess (DC), Opioid Safety Activity Restrictions/Additional Instructions: Wound Care Instructions: -- Change dressings daily and prn soilage/after bowel movements -- Remove packing - irrigate wound or shower (let water run over wound) -- Pack wound with 1/2 strip gauze -- Place 4x4 gauze overtop Follow up in general surgery clinic in 10 days Watch for signs of infection: Worsened/severe pain, fevers/chills, or worsened redness or purulent/malodorous drainage Antibiotics and narcotic pain prn severe pain/dressing changes medications have been prescribed to your preferred pharmacy. Plan of Treatment: See above. Discharge Attestations Time Spent in Discharge Care*: greater than 30 min Quality Metrics Clinical Quality Measures [ No reported AMI, CVA or VTE this stay] Coding Level of Care Code Acute Code for Chg Fwd Diagnoses Anal abscess K61.0
[2025-05-05 10:07] VITALS: BP 129/79; PULSE 57; RESP 18; TEMP 36.8; O2SAT 97
--- NOTE | 2025-05-05 10:10 | P.PN_ITS ---
Subjective 2 Subjective: Hospital course, labs appreciated. Patient seen laying comfortably in bed with spouse at bedside denies any nausea commenting on. Has remained medically stable and afebrile. Vitals/I&O/Wt Last Vital Signs Temp 98.3 F 05/05/25 10:07 Pulse 57 L 05/05/25 10:07 Resp 18 05/05/25 10:07 BP 129/79 05/05/25 10:07 Pulse Ox 97 05/05/25 10:07 O2 Del Method Room Air 05/05/25 04:00 O2 Flow Rate 10 05/02/25 22:45 05/04/25 05/05/25 05/05/25 22:59 06:59 14:59 Intake Total 390 / 1040 100 / 1140 290 / 290 Balance 390 / 1040 100 / 1140 290 / 290 Weight last 48 hrs Weight 95.617 kg Weight 95.209 kg Physical Exam 2 Narrative: General: Alert and oriented x 3. In no acute distress. Mouth: No erythema or tonsilar enlargement. No masses noted. Neck: No thyromegaly. No lymphadenopathy. Heart: Regular rate and rhythm. No murmurs. Lungs: Clear to auscultation bilaterally. No wheezes, crackles or ronchi. Abdomen: Soft, non-tender. No hepatosplenomegaly. Extremities: No pitting edema. Data 05/05/25 03:39 05/02/25 15:00 Micro: Microbiology 05/02/25 21:47 Gram Stain - Final Anus Abscess Culture - Preliminary Escherichia coli 05/02/25 21:47 Anaerobic Culture - Preliminary Anus A&P Assessment and plan (1) Perineal abscess: Drained on 05/02. Appreciate wound cultures. Growing E. coli. Pansensitive. Patient can be discharged on oral Augmentin for 10-day course. Will need to continue wound care as per primary team. Will need follow-up with PCP and surgical team as an outpatient. Discussed detail with patient at bedside. Plan Med rec completed PDMP PDMP Reviewed: Not Reviewed Attestations 2 Medical Necessity Statement*: As per primary team. Diagnoses Perineal abscess L02.215
--- NOTE | 2025-05-05 11:26 | PC.NURSE ---
Discharge instructions provided to pt and his . Dressing change done again as pt drsng soiled with small amount of stool. expresses understanding of procedure and sent home with supplies. No questions or concerns voiced at this time. To private vehicle via wheelchair with all belongings.
== END 2025-05-05 11:41 | disposition home or self-care (01) | DRG 349 ==
LOC: ER 17:40 → OR 19:31 → MEDSURG 21:23
PROVIDERS: Admitting Provider Surgery; Emergency Provider Student in an Organized Health Care Education/Training Program; Visit Provider Surgery
PROC: (CPT 46040; principal; 2025-05-02 21:00)
DX: K61.0 Anal abscess (principal); K61.1 Rectal abscess; D72.829 Elevated white blood cell count, unspecified
CPT/HCPCS: 12345; 36415; 72193; 80053; 83605; 85025; 87040; 87070; 87075; 87077; 87186; 87205; 88304; 96365; 96372; 96375; 99285; G0378; J0131; J0290; J1100; J1171; J1650; J2405; J2543; J2704; J3370; J3490; J7030; J9999; Q0163

== ENCOUNTER → 2025-05-15 10:23 | Outpatient (BNVA) | payer MEDICARE, SELFPAY | PROVIDERS: Visit Provider Student in an Organized Health Care Education/Training Program | DX: L02.512 Cutaneous abscess of left hand (principal); Z98.890 Other specified postprocedural states | CPT/HCPCS: 99204 ==